=== PATIENT | male | born 2000 | race Two or more races ===

== ENCOUNTER 2021-04-08 23:24 | Emergency (ER) | payer BC, OTHER ==
[~2021-04-08] VITALS: Ht 180.3 cm; Wt 75.9 kg
[2021-04-08 23:44] VITALS: BP 143/89
== END 2021-04-09 01:09 | disposition home or self-care (01) ==
LOC: ER 23:24
DX: S09.90XA Unspecified injury of head, initial encounter (principal); F17.210 Nicotine dependence, cigarettes, uncomplicated; J45.909 Unspecified asthma, uncomplicated; W01.0XXA Fall on same level from slipping, tripping and stumbling without subsequent striking against object, initial encounter; Y93.89 Activity, other specified; Y92.89 Other specified places as the place of occurrence of the external cause; Y99.8 Other external cause status
CPT/HCPCS: 99281

== ENCOUNTER 2024-11-20 13:20 | Emergency (ER) | payer BC, OTHER ==
[~2024-11-20] VITALS: Ht 182.9 cm; Wt 80.1 kg
[2024-11-20 13:25] VITALS: TEMP 97.9
--- NOTE | 2024-11-20 13:28 | ELECTROCARDIOGRAPH REPORT ---
[facility] Test Date: 2024-11-20 Test Time: 13:27:48 Pat Name: JANET DUBOSE Department: [facility]- Patient ID: [id number] Room: Gender: M Inspector Timers: : 2000 Requested By: MELCHOR AADMS Order Number: [id number] Reading MD: Measurements Intervals [place] Rate: 91 P: 96 [place]: 145 QRS: 81 QRSD: 88 T: 19 QT: 324 QTc: 399 Interpretive Statements Sinus rhythm Right atrial enlargement LVH by voltage ST elevation suggests acute pericarditis Please click the below link to view image of tracing.
--- NOTE | 2024-11-20 13:51 | RADIOLOGY REPORT ---
CHEST RADIOGRAPH Indication: CP Technique: Single frontal view of the chest was obtained Comparison: None FINDINGS: Lines and Tubes: None Lungs: No focal consolidation. Mild hyperinflation of the lungs. Pleura: No effusion. No pneumothorax. Cardiomediastinal contours: Unremarkable Bones: No acute osseous abnormality. IMPRESSION: No acute cardiopulmonary disease. Mild hyperinflation of the lungs.
[2024-11-20 14:18] VITALS: PULSE 80
[2024-11-20] MEDS ORDERED: ketorolac trometh 30MG/ML vial 30 MG/ML VIAL IV ONE (14:25)
--- NOTE | 2024-11-20 14:32 | Physician Documentation ---
History of Present Illness ~ Chief Complaint: Chest Wall Pain Stated Complaint: CHEST PAIN Time Seen by MD: 13:36 Primary Medical Doctor: None Source: patient Mode of Arrival: POV Exam Limitations: no limitations HPI 24-year-old male who is here with chief complaint chest pain. He states the pain started two days ago. Pain is worse when he takes a deep breath in. He states if he leans forward and takes a deep breath in he does not have any pain. He has never had anything like this before. No pre arrival treatment. Patient denies any past medical history. He does report that his grandmother has lupus. No other family autoimmune conditions. No fever, chills, body aches, cough, abdominal pain, nausea. Medication Reconciliation Allergies: Coded Allergies: No Known Allergies (Unverified , 04/08/21) Scheduled Naproxen (Naproxen), 1 TAB PO BID Past Medical History Past Medical History: Asthma Past Surgical History: no surgical history Alcohol Use: None Lives In: Home Review of Systems All Other Systems at this time: Reviewed and Negative Physical Exam Vital Signs: Temperature: 97.9, Source: Oral, Heart Rate: 80, Respiratory Rate: 16, BP: 141/87, Pulse Oximetry: 97, Weight: 80.100 Oxygen Flow Rate: 0 Physical Exam GENERAL: Alert, no acute distress. HEENT: NCAT, EOMI, PERRL, normal oropharynx, moist oral mucosa. NECK: Supple, trachea midline. CARDIAC: Regular rate and rhythm, no murmurs, rubs, or gallops. Equal distal pulses. No lower extremity edema, cap refill less than 2 seconds. RESPIRATORY: Equal breath sounds, clear to auscultation bilaterally, no respiratory distress. GASTROINTESTINAL: Soft, non distended, soft, nontender, No guarding or rebound. MUSCULOSKELETAL: Normal range of motion, nontender, no swelling. Normal gait. NEUROLOGICAL: Awake, alert, and oriented x 3. SKIN: Warm/dry, no pallor, no rash. PSYCH: Alert and appropriate. Affect congruent with mood. Speech is clear. Good eye contact. Progress Progress Note PAIN IMPROVED AFTER TORADOL Results/Orders Reviewed/noted all lab results: Yes Results/Orders Orders - RAMESH EWING JORDAN (11/20/24 14:05) Covid19 Binax Poc Result Entry (11/20/24 14:44) Vital Signs 11/20/24 11/20/24 11/20/24 11/20/24 13:25 14:18 14:36 15:26 Temp 97.9 Pulse 89 80 Resp 16 16 15 16 B/P (MAP) 131/90 141/87 (105) Pulse Ox 98 97 O2 Flow Rate 0 11/20/24 15:54 Resp 15 B/P (MAP) 136/82 Pulse Ox 97 Laboratory Tests Test 11/20/24 13:55 11/20/24 14:17 11/20/24 14:55 White Blood Count 12.6 H Red Blood Count 5.71 Hemoglobin 16.6 Hematocrit 46.8 Mean Corpuscular Volume 82.0 Mean Corpuscular Hemoglobin 29.1 Mean Corpuscular Hemoglobin Concent 35.5 Red Cell Distribution Width 13.8 Platelet Count 274 Mean Platelet Volume 7.9 Neutrophils (%) (Auto) 72.4 Lymphocytes (%) (Auto) 15.2 L Monocytes (%) (Auto) 9.4 Eosinophils (%) (Auto) 2.6 Basophils (%) (Auto) 0.4 Neutrophils # (Auto) 9.1 H Lymphocytes # (Auto) 1.9 Monocytes # (Auto) 1.2 H Eosinophils # (Auto) 0.3 Basophils # (Auto) 0.1 CBC Comment Sodium Level 138 Potassium Level 4.0 Chloride Level 104 Carbon Dioxide Level 28.1 Anion Gap 6 L Blood Urea Nitrogen 11 Creatinine 1.10 Estimated GFR/1.73 m2 82 BUN/Creatinine Ratio 10.0 Glucose Level 95 Calcium Level 9.3 Troponin I High Sensitivity < 4 L Troponin I High Sens Percent Delta Troponin I Hi Sens Absolute Change Pro-B-Type Natriuretic Peptide < 30 Albumin 4.3 Chemistry Comments SARS-CoV-2 Antigen (Rapid) Negative EKG/XRAY/CT/US/VASC/MRI Chest X-Ray : Interpreted By: radiologist Views: 2 VIEW Indication: chest pain Lungs: normal Mediastinum: normal Ribs/Bones: normal Abdomen: normal Impression: no acute disease Medical Decision Making Differential Dx:Considerations: Include: angina, aortic dissection, chest wall pain, cholelithiasis, CHF, costochondritis, esophageal reflux/spasm, gastritis, herpes zoster, myocardial infarction, pericarditis, pleuritis, pancreatitis, pneumonia, pneumothorax, pulmonary embolus, other Additional Information Patient's chest pain that has related to deep inspiration and improves when he leans forward and takes a deep breath in as well as the findings on his EKG which show diffuse ST elevation across all leads is most consistent with peric arditis. Given family history of lupus I added an JORDAN to his labs. Patient still needs a more complete outpatient workup for contributing autoimmune causes. Departure Time of Disposition: 14:32 Disposition: HOME / SELF CARE / HOMELESS Impression: Primary Impression: Pericarditis Qualified Codes: I31.9 - Disease of pericardium, unspecified Condition: Stable Discharge Instructions: Pericarditis Additional Instructions: Patient's chest pain is related to deep inspiration and improves when he leans forward and takes a deep breath in as well as the findings on his EKG which show diffuse ST elevation across all leads is most consistent with pericarditis. Given family history of lupus I added an JORDAN to his labs. If JORDAN is positive, as we discussed, it just means it needs to be repeated with JORDAN reflex titer and pattern testing and if this is positive then it warrants referral to rheumatology. Referrals: NO PRIMARY CARE PROVIDER (PCP) Prescriptions Naproxen (Naproxen) 500 Mg Tablet 1 TAB PO BID for 30 Days, #60 TAB 0 Refills Prov: RAMESH EWING 11/20/24 Education Educated: Patient Educated regarding: diagnosis, treatment, need for follow up Signature Scribe Signature: alfred Attestation: RAMESH Guevara Nov 20, 2024 14:32
[2024-11-20 14:33] LABS: ALBUMIN 4.3 G/DL (3.4-5.0); ANION GAP 6 (8-16); BLOOD UREA NITROGEN 11 MG/DL (7-18); CALCIUM 9.3 MG/DL (8.5-10.1); CHLORIDE 104 MMOL/L (99-107); GLUCOSE 95 MG/DL (70-104); SODIUM 138 MMOL/L (135-145); TOTAL CARBON DIOXIDE 28.1 MMOL/L (24-32); eCRCL 114 ML/MIN; eGFR 82 ML/MIN
[2024-11-20 14:35] LABS: BASOPHILS # (AUTO) 0.1 X10'3 (0-0.2); BASOPHILS % (AUTO) 0.4 % (0-1); EOSINOPHILS # (AUTO) 0.3 X10'3 (0-0.9); EOSINOPHILS % (AUTO) 2.6 % (0-6); HEMATOCRIT 46.8 % (42.0-52.0); HEMOGLOBIN 16.6 g/dl (14.0-17.9); LYMPHOCYTES # (AUTO) 1.9 X10'3 (1.1-4.8); LYMPHOCYTES % (AUTO) 15.2 % (21-51); MEAN CORPUSCULAR HEMOGLOBIN 29.1 PG (27.0-31.0); MEAN CORPUSCULAR HGB CONC 35.5 g/dL (33.0-36.5); MEAN PLATELET VOLUME 7.9 FL (7.4-10.4); MONOCYTES # (AUTO) 1.2 X10'3 (0-0.9); MONOCYTES % (AUTO) 9.4 % (2-12); NEUTROPHILS # (AUTO) 9.1 X10'3 (1.8-7.7); NEUTROPHILS % (AUTO) 72.4 % (42-75); PLATELET COUNT 274 X10'3 (140-440); RED BLOOD COUNT 5.71 X10'6 (4.70-6.10); RED CELL DISTRIBUTION WIDTH 13.8 % (11.5-14.5); WHITE BLOOD COUNT 12.6 X10'3 (4.5-11.0)
[2024-11-20] MEDS: ketorolac trometh 30MG/ML vial 30 MG/ML VIAL IM ONE (14:36)
[2024-11-20 15:11] LABS: PRO BRAIN NATRIURETIC PEPTIDE < 30 PG/ML (0-125)
[2024-11-20] MEDS ORDERED: NAPR-56 PO (15:27)
[2024-11-20 15:54] VITALS: BP 136/82; RESP 15; O2SAT 97
== END 2024-11-20 15:41 | disposition home or self-care (01) ==
LOC: ER 13:21
DX: I31.9 Disease of pericardium, unspecified (principal); J45.909 Unspecified asthma, uncomplicated; Z79.899 Other long term (current) drug therapy; Z20.822 Contact with and (suspected) exposure to COVID-19
CPT/HCPCS: 36415; 71045; 80048; 83880; 84484; 85025; 86038; 87811; 93005; 96372; 99285; J1885